=== PATIENT | female | born 1990 | race Caucasian/White ===

== ENCOUNTER 2016-12-31 09:58 | Emergency (ER) | payer OTHER ==
[2016-12-31 10:04] VITALS: BP 119/83
--- NOTE | 2016-12-31 10:08 | ER Document Report ---
ED Medical Screen (RME) - General Stated Complaint: SORE THROAT Time seen by provider: 10:05 Mode of Arrival: Ambulatory Information source: Patient Notes: 26-year-old female presents to ED for flulike symptoms with a sore throat today. She was diagnosed with the flu yesterday and her sore throat is worse today. Temperature got up to 100 for throat worse has been throwing up. Took Tylenol 8:30 and ibuprofen last at 3 AM. I have greeted and performed a rapid initial assessment of this patient. A comprehensive ED assessment and evaluation of the patient, analysis of test results and completion of medical decision making process will be conducted by an additional ED providers. TRAVEL OUTSIDE OF THE [place] IN LAST 30 DAYS: No - Related Data Allergies/Adverse Reactions: No Known Allergies Allergy (Unverified 10/23/15 17:47) Past Medical History Pulmonary Medical History: Reports: Hx Asthma Renal/ Medical History: Reports: Hx Kidney Stones Past Surgical History: Reports: Hx Appendectomy - Immunizations Hx Diphtheria, Pertussis, Tetanus Vaccination: Yes Physical Exam - Vital signs Vitals: Temp Pulse Resp BP Pulse Ox 99.6 F 126 H 20 119/83 97 12/31/16 10:03 12/31/16 10:03 12/31/16 10:03 12/31/16 10:03 12/31/16 10:03 Course - Vital Signs Vital signs: Temp Pulse Resp BP Pulse Ox 99.6 F 126 H 20 119/83 97 12/31/16 10:03 12/31/16 10:03 12/31/16 10:03 12/31/16 10:03 12/31/16 10:03
--- NOTE | 2016-12-31 10:47 | ER Document Report ---
ED ENT - General Chief Complaint: Sore Throat Stated Complaint: SORE THROAT Time seen by provider: 10:39 Mode of Arrival: Ambulatory Information source: Patient TRAVEL OUTSIDE OF THE [place] IN LAST 30 DAYS: No - HPI Patient complains to provider of: Throat problem Onset: Yesterday - pt with sore throat for the past 1-2 days. Child was diagnosed with flu yesterday. - Related Data Allergies/Adverse Reactions: No Known Allergies Allergy (Unverified 10/23/15 17:47) Past Medical History - General Information source: Patient - Social History Smoking Status: Never Smoker Chew tobacco use (# tins/day): No Frequency of alcohol use: None Drug Abuse: None Family History: Reviewed & Not Pertinent Patient has suicidal ideation: No Patient has homicidal ideation: No Pulmonary Medical History: Reports: Hx Asthma Renal/ Medical History: Reports: Hx Kidney Stones. Denies: Hx Peritoneal Dialysis Past Surgical History: Reports: Hx Appendectomy - Immunizations Hx Diphtheria, Pertussis, Tetanus Vaccination: Yes Review of Systems - Review of Systems Constitutional: See HPI, Fever EENT: See HPI, Throat pain Cardiovascular: No symptoms reported Respiratory: No symptoms reported Gastrointestinal: No symptoms reported -: Yes All other systems reviewed and negative Physical Exam - Vital signs Vitals: Temp Pulse Resp BP Pulse Ox 99.6 F 126 H 20 119/83 97 12/31/16 10:12/31/16 10:03 12/31/16 10:03 12/31/16 10:03 12/31/16 10:03 - General General appearance: Appears well In distress: Mild - HEENT Ears: Normal Pharynx: Erythema. No: Exudate Neck: Anterior cervical chain - Respiratory Respiratory status: No respiratory distress Breath sounds: Normal - Cardiovascular Rhythm: Regular, Tachycardia Heart sounds: Normal auscultation - Abdominal Inspection: Normal Tenderness: Nontender Course - Vital Signs Vital signs: Temp Pulse Resp BP Pulse Ox 99.6 F 126 H 20 119/83 97 12/31/16 10:03 12/31/16 10:03 12/31/16 10:03 12/31/16 10:03 12/31/16 10:03 Discharge - Discharge Clinical Impression: Pharyngitis Qualifiers: Pharyngitis/tonsillitis etiology: unspecified etiology Qualified Code(s): J02.9 - Acute pharyngitis, unspecified Condition: Stable Disposition: HOME, SELF-CARE Instructions: Sore Throat ([facility]), Penicillin V K ([facility]) Additional Instructions: rest, salt water gargle 3x/day, take meds as prescribed, return if worse Prescriptions: Amoxicillin Trihydrate [Amoxil 500 mg Capsule] 500 mg PO TID #30 capsule Referrals: RUTH FRANCO MD [ACTIVE STAFF] - Follow up as needed
== END 2016-12-31 10:58 | disposition home or self-care (01) ==
LOC: ER 09:58
DX: J02.9 Acute pharyngitis, unspecified (principal); R50.9 Fever, unspecified; R00.0 Tachycardia, unspecified; J45.909 Unspecified asthma, uncomplicated; Z20.828 Contact with and (suspected) exposure to other viral communicable diseases
CPT/HCPCS: 87880; 99283

== ENCOUNTER 2017-03-30 23:52 | Emergency (ER) | payer OTHER ==
[2017-03-31] MEDS ORDERED: ADENOSINE INJ/PF 6 MG/2 ML SDV IV ONE ×2 (00:29→00:32)
[2017-03-31] MEDS ORDERED: NORMAL SALINE 1000 ML 1,000 ML IV ONE (00:38)
[2017-03-31] MEDS ORDERED: LORAZEPAM INJ 2 MG/1 ML VIAL IV ONE (00:38)
[2017-03-31 00:41] LABS: ABSOLUTE EOSINOPHILS # (AUTO) 0.1 10^3/uL (0.0-0.6); ABSOLUTE LYMPHOCYTES (AUTO) 3.9 10^3/uL (0.5-4.7); ABSOLUTE MONOCYTES (AUTO) 0.9 10^3/uL (0.1-1.4); ABSOLUTE NEUT (AUTO) 6.7 10^3/uL (1.7-8.2); BASOPHILS % (AUTO) 0.4 % (0-2); EOSINOPHILS % (AUTO) 0.8 % (0-6); HEMATOCRIT 41.3 % (36.0-47.0); HEMOGLOBIN 13.8 g/dL (12.0-15.5); HGB HCT DIFFERENCE 0.1; LYMPHOCYTES % (AUTO) 33.3 % (13-45); MEAN CORPUSCULAR HEMOGLOBIN 30.5 pg (27.0-33.4); MEAN CORPUSCULAR HGB CONC 33.4 g/dL (32.0-36.0); MEAN CORPUSCULAR VOLUME 91 fl (80-97); MONOCYTES % (AUTO) 7.8 % (3-13); RED BLOOD COUNT 4.52 10^6/uL (3.72-5.28); RED CELL DISTRIBUTION WIDTH 13.6 % (11.5-14.0); SEGMENTED NEUTROPHILS % (AUTO) 57.7 % (42-78); WHITE BLOOD COUNT 11.6 10^3/uL (4.0-10.5)
[2017-03-31] MEDS ORDERED: LORAZEPAM INJ 2 MG/1 ML VIAL ONE (00:41)
--- NOTE | 2017-03-31 00:41 | ER Document Report ---
ED Cardiac <GEOFFREY MUNOZIAN - Last Filed: 03/31/17 00:49> - General TRAVEL OUTSIDE OF THE [place] IN LAST 30 DAYS: No <SAE BOWMAN - Last Filed: 03/31/17 03:25> - General Chief Complaint: Chest Pain Stated Complaint: CHEST PAIN WITH INCREASED HEART RATE Time Seen by Provider: 03/31/17 00:25 Notes: Patient is a 26-year-old female who comes emergency department for chief complaint of sensation of rapid heart rate, she also states that she was feeling short of breath earlier before arrival, she states that after going to a ball game they were driving home and she developed symptoms. She denies having chest pain, but does feel her heart pounding. patient states that she had an elevated heart rate at baseline and has been evaluated for this in the past, however she takes no medications, has never had a CT treatment or cardioversion. She is currently on her menstrual cycle. She admits to caffeine daily but denies smoking or any other medical history. (SAE BOWMAN) - Related Data Allergies/Adverse Reactions: No Known Allergies Allergy (Unverified 10/23/15 17:47) Past Medical History - General Information source: Patient - Social History Smoking Status: Never Smoker Chew tobacco use (# tins/day): No Frequency of alcohol use: None Drug Abuse: None Lives with: Family Family History: Reviewed & Not Pertinent Patient has suicidal ideation: No Patient has homicidal ideation: No Pulmonary Medical History: Reports: Hx Asthma Renal/ Medical History: Reports: Hx Kidney Stones - medular spnge kidney. Denies: Hx Peritoneal Dialysis Past Surgical History: Reports: Hx Appendectomy - Immunizations Hx Diphtheria, Pertussis, Tetanus Vaccination: Yes <SAE BOWMAN - Last Filed: 03/31/17 03:25> Review of Systems - Review of Systems Constitutional: No symptoms reported EENT: No symptoms reported Cardiovascular: See HPI Respiratory: See HPI Gastrointestinal: No symptoms reported Genitourinary: No symptoms reported Female Genitourinary: No symptoms reported Musculoskeletal: No symptoms reported Skin: No symptoms reported Hematologic/Lymphatic: No symptoms reported Neurological/Psychological: No symptoms reported <SAE BOWMAN - Last Filed: 03/31/17 03:25> Physical Exam - Vital signs Interpretation: Normal - General General appearance: Alert, Anxious In distress: None - HEENT Head: Normocephalic, Atraumatic Eyes: Normal Conjunctiva: Normal Extraocular movements intact: Yes Eyelashes: Normal Pupils: PERRL Nasal: Normal Mouth/Lips: Normal Mucous membranes: Normal Pharynx: Normal Neck: Normal - Respiratory Respiratory status: No respiratory distress Chest status: Nontender Breath sounds: Normal Chest palpation: Normal - Cardiovascular Rhythm: Regular, Tachycardia - marked tachycardia Heart sounds: Normal auscultation, S1 appreciated, S2 appreciated Murmur: No - Abdominal Inspection: Normal Distension: No distension Bowel sounds: Normal Tenderness: Nontender. No: Tender, Guarding Organomegaly: No organomegaly - Back Back: Normal, Nontender. No: Tender - Extremities General upper extremity: Normal inspection, Nontender, Normal color, Normal ROM , Normal temperature General lower extremity: Normal inspection, Nontender, Normal color, Normal ROM , Normal temperature, Normal weight bearing. No: Vanna's sign - Neurological Neuro grossly intact: Yes Cognition: Normal Orientation: AAOx4 Rachel Coma Scale Eye Opening: Spontaneous [place] Coma Scale Verbal: Oriented Rachel Coma Scale Motor: Obeys Commands Rachel Coma Scale Total: 15 Speech: Normal Cranial nerves: Normal Cerebellar coordination: Normal Motor strength normal: LUE, RUE, LLE, RLE Sensory: Normal - Psychological Associated symptoms: Anxious - Skin Skin Temperature: Warm Skin Moisture: Dry Skin Color: Normal <SAE BOWMAN - Last Filed: 03/31/17 03:25> - Vital signs Vitals: Temp Pulse Resp BP Pulse Ox 98.1 F 165 H 18 143/100 H 100 03/30/17 23:59 03/30/17 23:59 03/30/17 23:59 03/30/17 23:59 03/30/17 23:59 Course - Laboratory Result Diagrams: 03/31/17 00:30 03/31/17 00:30 <SILVIO MUNOZ - Last Filed: 03/31/17 00:49> - Laboratory Result Diagrams: 03/31/17 00:30 03/31/17 00:30 <SAE BOWMAN - Last Filed: 03/31/17 03:25> - Re-evaluation Re-evalutation: 03/31/17 00:40 On initial evaluation patient immediately hooked up to the monitor and noted to have a resting heart rate of about 175-185. Patient anxious but does not appear to be in distress. She denies chest pain. No hypotension. EKG performed , shows SVT at 160s although on average patient is significantly higher than this on the monitor. No comparison EKG. Beginning vagal maneuvers, grabbed Dr. Munoz and he was introduced to the patient at bedside, he was able to field hockey coach patient through a couple of additional vagal maneuvers and patient successfully was able to break out of the SVT into sinus rhythm after third vagal maneuver attempt. No adenosine required. Giving Ativan, IV fluids, workup pending. Patient states that she was admitted to the hospital because of persistent baseline tachycardia of about 120s on average, states that she had multiple tests performed including an echocardiogram but no one has found an abnormality to this point. 03/31/[address] Alejandro, Cardiology assistant front office manager. He recommends Atenolol 25 mg daily and gave his cell phone for patient to follow up with. Recommends Sunday followup after the holiday weekend is over. Patient states understanding and agreement. Dr. Munoz ordering potassium and magnesium to give to the patient to go as well. (SAE BOWMAN) - Vital Signs Vital signs: Temp Pulse Resp BP Pulse Ox 98.1 F 160 H 16 124/89 H 99 03/30/17 23:59 03/31/17 00:19 03/31/17 02:01 03/31/17 02:01 03/31/17 02:01 - Laboratory Laboratory results interpreted by me: 03/31/17 03/31/17 03/31/17 00:30 00:30 00:49 WBC 11.6 H Sodium 145.8 H Calcium 10.8 H Total Protein 8.5 H Albumin 5.1 H Urine Blood SMALL H - Transfer of Care Notes: 03/31/17 00:50 I was asked to see the patient because she was in SVT. Patient was in SVT. She does have a history of sinus tachycardia. She has had workups by cardiology including echocardiogram and EKGs. She has been admitted [facility] for workup. She has never actually been in prolonged SVT before. She felt her heart race fast before but it is always slow down quickly afterwards. She says her resting heart rate is actually typically around 120. Patient does drink a lot of caffeine. She says denies episode is been ongoing for several hours. Patient's first EKG does show SVT with a rate of approximately 164 bpm. This is a narrow complex tachycardia. QRS duration is within normal range. QTc interval is prolonged. No concerning ischemic changes. Patient underwent 3 vagal maneuvers. On the third vagal maneuvers she did convert. Her repeat EKG shows sinus tachycardia with a rate of 119 bpm. No ischemic changes. No evidence of WPW syndrome. QRS duration, QTc intervals are within normal range. Blood work is pending. Patient was kept on monitor and closely watched until lab results returned (SILVIO MUNOZ) Discharge <SILVIO MUNOZ - Last Filed: 03/31/17 00:49> <SAE BOWMAN - Last Filed: 03/31/17 03:25> - Discharge Clinical Impression: SVT (supraventricular tachycardia), Tachycardia Condition: Stable Disposition: HOME, SELF-CARE Additional Instructions: Tonight you had an episode of SVT, supraventricular tachycardia. Take the atenolol as prescribed, stay hydrated, please follow-up with equipment records supervisor on Sunday, see referral, the equipment records supervisor can also be reached at cell phone #[phone]. Return to the emergency department if you develop any concerning or worsening symptoms including rapid heart rate, shortness of breath, chest pain, or any other concerning symptoms. Prescriptions: Atenolol [Tenormin] 25 mg PO DAILY #30 tablet Referrals: DANO GU MD [ACTIVE STAFF] - 04/03/17
[2017-03-31 01:02] LABS: APPEARANCE,URINE CLEAR; BILIRUBIN,URINE NEGATIVE (NEGATIVE); GLUCOSE, URINE NEGATIVE (NEGATIVE); KETONES,URINE NEGATIVE (NEGATIVE); LEUKOCYTE ESTERASE,URINE NEGATIVE (NEGATIVE); NITRITE,URINE NEGATIVE (NEGATIVE); PROTEIN,URINE NEGATIVE (NEGATIVE); UROBILINOGEN,URINE NEGATIVE mg/dL (<2.0)
[2017-03-31 01:06] LABS: ALANINE AMINOTRANSFERASE 32 U/L (9-52); ALBUMIN 5.1 g/dL (3.5-5.0); ALKALINE PHOSPHATASE 63 U/L (38-126); ANION GAP 18 (5-19); ASPARTATE AMINO TRANSFERASE 24 U/L (14-36); BILIRUBIN,DIRECT 0.4 mg/dL (0.0-0.4); BILIRUBIN,TOTAL 0.4 mg/dL (0.2-1.3); BLOOD UREA NITROGEN 11 mg/dL (7-20); CALCIUM 10.8 mg/dL (8.4-10.2); CARBON DIOXIDE 23 mmol/L (22-30); CHLORIDE 105 mmol/L (98-107); CREATININE RESULT 0.73 mg/dL (0.52-1.25); GLUCOSE 104 mg/dL (75-110); MAGNESIUM 1.7 mg/dL (1.6-2.3); POTASSIUM 3.6 mmol/L (3.6-5.0); SODIUM 145.8 mmol/L (137-145); TOTAL PROTEIN 8.5 g/dL (6.3-8.2)
[2017-03-31] MEDS ORDERED: POTASSIUM CHLORIDE 10 MEQ TABLET.SA PO ONE (02:20)
[2017-03-31] MEDS ORDERED: MAGNESIUM SULFATE/D5W 100 ML IV SCH (02:30)
[2017-03-31] MEDS ORDERED: MAGNESIUM OXIDE 400 MG TABLET PO ONE (02:46)
[2017-03-31 04:22] VITALS: BP 136/86
--- NOTE | 2017-03-31 08:14 | EKG REPORT ---
SEVERITY:- ABNORMAL ECG - SINUS TACHYCARDIA INCOMPLETE RIGHT BUNDLE BRANCH BLOCK LA ABNORMALITY : Confirmed by: Yadiel Gould MD 31-Mar-2017 08:14:16
--- NOTE | 2017-03-31 08:16 | EKG REPORT ---
SEVERITY:- ABNORMAL ECG - SUPRAVENTRICULAR TACHYCARDIA PROLONGED QT INTERVAL ST-T WAVE CHANGES DUE TO TACHYCARDIA : Confirmed by: Yadiel Gould MD 31-Mar-2017 08:15:59
== END 2017-03-31 02:50 | disposition home or self-care (01) ==
LOC: ER 23:52
DX: I47.1 Supraventricular tachycardia (principal); R00.0 Tachycardia, unspecified; R07.9 Chest pain, unspecified
CPT/HCPCS: 93005; 99285; 96361; 96374; 36415; 83735; 84443; 84703; 85025; 80053; 81001; 93010; J2060; J7030

== ENCOUNTER 2017-05-31 11:15 | Emergency (ER) | payer OTHER ==
[2017-05-31] MEDS ORDERED: ATENOLOL 50 MG TABLET PO ONE (12:01)
[2017-05-31] MEDS ORDERED: NORMAL SALINE 1000 ML 1,000 ML IV PRN (12:01)
[2017-05-31 12:07] LABS: ABSOLUTE LYMPHOCYTES (AUTO) 2.2 10^3/uL (0.5-4.7); ABSOLUTE MONOCYTES (AUTO) 0.5 10^3/uL (0.1-1.4); ABSOLUTE NEUT (AUTO) 4.5 10^3/uL (1.7-8.2); BASOPHILS % (AUTO) 0.4 % (0-2); EOSINOPHILS % (AUTO) 0.7 % (0-6); HEMOGLOBIN 12.4 g/dL (12.0-15.5); HGB HCT DIFFERENCE 0.2; LYMPHOCYTES % (AUTO) 30.4 % (13-45); MEAN CORPUSCULAR HEMOGLOBIN 30.7 pg (27.0-33.4); MEAN CORPUSCULAR HGB CONC 33.5 g/dL (32.0-36.0); MEAN CORPUSCULAR VOLUME 92 fl (80-97); MONOCYTES % (AUTO) 6.6 % (3-13); RED BLOOD COUNT 4.04 10^6/uL (3.72-5.28); SEGMENTED NEUTROPHILS % (AUTO) 61.9 % (42-78); WHITE BLOOD COUNT 7.3 10^3/uL (4.0-10.5)
--- NOTE | 2017-05-31 12:11 | ER Document Report ---
ED Cardiac - General Chief Complaint: Chest Pain Stated Complaint: CHEST PAIN Time Seen by Provider: 05/31/17 11:54 Notes: The patient is a 26-year-old female, past medical history SVT, unexplained tachycardia (baseline HR 110-120's), presents with 1 hour of feeling her heart racing and mild chest pain. She was seen in the emergency room 2 months ago for SVT which resolved after vagal maneuvers. She was recommended to be started on atenolol 25 mg daily and she finished the course. Patient Service Representative is at [facility] and she has had a Holter monitor, echo and other workup, which they told her was normal. She no longer has atenolol. Patient denies leg swelling, estrogen use, hemoptysis, shortness of breath, fevers, cough, nausea, vomiting, urinary symptoms or back pain. TRAVEL OUTSIDE OF THE [place] IN LAST 30 DAYS: No - Related Data Allergies/Adverse Reactions: No Known Allergies Allergy (Verified 05/31/17 11:32) Past Medical History - General Information source: Patient - Social History Smoking Status: Never Smoker Family History: Reviewed & Not Pertinent Patient has suicidal ideation: No Patient has homicidal ideation: No - Past Medical History Cardiac Medical History: Reports: Other - Tachycardia Pulmonary Medical History: Reports: Hx Asthma Renal/ Medical History: Reports: Hx Kidney Stones - medular spnge kidney. Denies: Hx Peritoneal Dialysis Past Surgical History: Reports: Hx Appendectomy - Immunizations Hx Diphtheria, Pertussis, Tetanus Vaccination: Yes Review of Systems - Review of Systems Notes: REVIEW OF SYSTEMS: CONSTITUTIONAL: -fevers, -chills EENT: -eye pain, -difficulty swallowing, -nasal congestion CARDIOVASCULAR: +chest pain, +palpitations, -syncope. RESPIRATORY: -cough, -SOB GASTROINTESTINAL: -abdominal pain, -nausea, -vomiting, -diarrhea GENITOURINARY: -dysuria, -hematuria MUSCULOSKELETAL: -back pain, -neck pain SKIN: -rash or skin lesions. HEMATOLOGIC: -easy bruising or bleeding. LYMPHATIC: -swollen, enlarged glands. NEUROLOGICAL: -altered mental status or loss of consciousness, -headache, - neurologic symptoms PSYCHIATRIC: -anxiety, -depression. ALL OTHER SYSTEMS REVIEWED AND NEGATIVE. Physical Exam - Notes Notes: PHYSICAL EXAMINATION: GENERAL: Well-appearing, well-nourished and in no acute distress. HEAD: Atraumatic, normocephalic. EYES: Pupils equal round and reactive to light, extraocular movements intact, sclera anicteric, conjunctiva are normal. ENT: nares patent, oropharynx clear without exudates. Moist mucous membranes. NECK: Normal range of motion, supple without lymphadenopathy LUNGS: Breath sounds clear to auscultation bilaterally and equal. No wheezes rales or rhonchi. HEART: Regular rhythm without murmurs. Tachycardia ABDOMEN: Soft, nontender, normoactive bowel sounds. No guarding, no rebound. No masses appreciated. EXTREMITIES: Normal range of motion, no pitting or edema. No cyanosis. NEUROLOGICAL: Cranial nerves grossly intact. Normal speech, normal gait. Normal sensory and motor exams. PSYCH: Normal mood, normal affect. SKIN: Warm, Dry, normal turgor, no rashes or lesions noted. Course - Re-evaluation Re-evalutation: Patient seen immediately on arrival after EKG. No P waves were detected on initial EKG and SVT was suspected. Patient converted to sinus tachycardia after vagal maneuvers. She was hemodynamically stable the entire time. Labs were unremarkable. D-dimer sent due to low risk for PE, but unable to PERC out. It was also negative. Chest x-ray did not show any acute abnormalities. Patient says that she has had multiple workups for her tachycardia by the training administrator at [facility]. Looking through her last visit, she is supposed to be on atenolol 25 mg daily and supposed to follow-up with Dr. Gu as an outpatient. She is requesting another referral for Dr. Gu. Patient feels much better and her HR is 97 after 2L IVF. Instructed her to drink plenty of fluids, take her atenolol and follow-up with cardiology. Given strict return precautions and she understands. - Laboratory Result Diagrams: 05/31/17 11:55 05/31/17 11:55 Laboratory results interpreted by me: 05/31/17 11:55 Sodium 145.1 H Chloride 108 H - Diagnostic Test Radiology reviewed: Image reviewed, Reports reviewed Radiology results interpreted by me: CXR: NAD - EKG Interpretation by Me EKG shows normal: [place], Intervals, QRS Complexes, ST-T Waves Rate: Tachycardia Rhythm: SVT Additional EKG results interpreted by me: 05/31/17 11:30: tachycardia, no P-waves notes, HR 151 05/31/17 12:06: Sinus Tachycardia, HR 106 Discharge - Discharge Clinical Impression: Tachycardia Condition: Stable Disposition: HOME, SELF-CARE Additional Instructions: Take the atenolol as prescribed, stay hydrated, please follow-up with training administrator HERON, see referral. The training administrator can also be reached at cell phone #[phone]. Return to the emergency department if you develop any concerning or worsening symptoms including rapid heart rate, shortness of breath, chest pain, or any other concerning symptoms. Palpitations (Irregular/Rapid Heartrate) Irregular or rapid heartbeat is called "palpitation." To diagnose the cause of palpitation, we have to "catch it in the act" with an EKG. Sinus Tachycardia: This is a rapid (but NORMAL) rhythm that can be due to fever, pain, anxiety, lack of sleep, over-exertion, or drugs. Cold medications, caffeine, and diet pills are particularly likely to cause tachycardia. Usually , all that's required is rest, reassurance, and avoiding caffeine, alcohol, nicotine, and unnecessary medicines. Paroxysmal Atrial Tachycardia (PAT): This abnormally rapid heartbeat is caused by a "short circuit" in the electrical system of the heart. It is not dangerous, unless other heart disease is present. These attacks of PAT may occur occasionally for years. Medication is available for treatment. Paroxysmal Atrial Fibrillation or Atrial Flutter: This is irregular electrical activity in the upper heart chamber. These abnormal rhythms often occur with valve disease or in hearts damaged by hardening of the arteries. These rhythms usually require further testing, for example a cardiac echo. Premature Beats: Extra beats occur more commonly after caffeine, nicotine , alcohol, cold pills, diet pills. Emotional stress or fatigue also provoke them. Extra beats are only dangerous when heart disease is present. They usually need no treatment. If they're frequent, or if evidence of heart disease develops, medication can be given to suppress them. If we were unable to "catch" the palpitations on EKG, you should try to get an EKG immediately if the symptoms begin again. Contact the physician at once if you develop persistent lightheadedness, shortness of breath, chest pain , or swelling of the ankles. Prescriptions: Atenolol [Tenormin] 25 mg PO DAILY #30 tablet Referrals: DANO GU MD [ACTIVE STAFF] - Follow up as needed
[2017-05-31 12:52] LABS: ALANINE AMINOTRANSFERASE 27 U/L (9-52); ALBUMIN 4.8 g/dL (3.5-5.0); ALKALINE PHOSPHATASE 57 U/L (38-126); ANION GAP 14 (5-19); ASPARTATE AMINO TRANSFERASE 25 U/L (14-36); BILIRUBIN,DIRECT 0.3 mg/dL (0.0-0.4); BILIRUBIN,TOTAL 0.4 mg/dL (0.2-1.3); BLOOD UREA NITROGEN 9 mg/dL (7-20); CALCIUM 9.9 mg/dL (8.4-10.2); CARBON DIOXIDE 23 mmol/L (22-30); CHLORIDE 108 mmol/L (98-107); CREATININE RESULT 0.53 mg/dL (0.52-1.25); GLUCOSE 104 mg/dL (75-110); POTASSIUM 3.8 mmol/L (3.6-5.0); SODIUM 145.1 mmol/L (137-145)
--- NOTE | 2017-05-31 13:48 | RADIOLOGY REPORT (SQ) ---
EXAM DESCRIPTION: CHEST PA/LAT COMPLETED DATE/TIME: 05/31/2017 1:26 pm REASON FOR STUDY: chest pain COMPARISON: None. EXAM PARAMETERS: NUMBER OF VIEWS: two views TECHNIQUE: Digital Frontal and Lateral radiographic views of the chest acquired. RADIATION DOSE: NA LIMITATIONS: none FINDINGS: LUNGS AND PLEURA: No opacities, masses or pneumothorax. No pleural effusion. MEDIASTINUM AND HILAR STRUCTURES: No masses or contour abnormalities. HEART AND VASCULAR STRUCTURES: Heart normal size. No evidence for failure. BONES: No acute findings. HARDWARE: None in the chest. OTHER: No other significant finding. IMPRESSION: NO SIGNIFICANT RADIOGRAPHIC FINDING IN THE CHEST. TECHNICAL DOCUMENTATION: JOB ID: [id number] [employer]- All Rights Reserved
[2017-05-31 14:10] VITALS: BP 118/91
--- NOTE | 2017-05-31 17:14 | EKG REPORT ---
SEVERITY:- OTHERWISE NORMAL ECG - SINUS TACHYCARDIA : Confirmed by: Mary Velázquez MD 31-May-2017 17:13:46
--- NOTE | 2017-05-31 17:15 | EKG REPORT ---
SEVERITY:- OTHERWISE NORMAL ECG - SINUS TACHYCARDIA VERSUS SVT.CORELATE CLINICALLY : Confirmed by: Mary Velázquez MD 31-May-2017 17:14:42
== END 2017-05-31 14:10 | disposition home or self-care (01) ==
LOC: ER 11:15
DX: R00.0 Tachycardia, unspecified (principal); R07.9 Chest pain, unspecified; I47.1 Supraventricular tachycardia; Z79.899 Other long term (current) drug therapy
CPT/HCPCS: 93005; 99285; 96360; 36415; 84703; 85025; 80053; 84484; 85379; 71020; 93010; J7030

== ENCOUNTER 2017-09-03 17:41 | Emergency (ER) | payer OTHER ==
[2017-09-03] MEDS ORDERED: NAPROXEN 250 MG TABLET PO ONE (18:35)
--- NOTE | 2017-09-03 18:40 | ER Document Report ---
HPI - HPI Patient complains to provider of: left hand pain Pain Level: 3 Context: Patient is a 27-year-old female that comes emergency department for chief complaint of left hand pain. She states that 6 days ago she had a ablation procedure performed Ritchie, she states there was an IV placed in her hand which blew and medications were pushed through it causing some swelling to the hand. She states that her hand still hurts, she states she tried to go to work but the typing was too painful. She states her left arm and shoulder are starting become tired because of her holding her hand awkwardly to type. She denies any significant swelling, redness, fever. She denies chest pain, shortness of breath, she states she is doing great after the ablation and she is very excited about this. She is not on any medications. - DERM Skin Color: Normal Past Medical History - General Information source: Patient - Social History Smoking Status: Never Smoker Frequency of alcohol use: None Drug Abuse: None Lives with: Family Family History: Reviewed & Not Pertinent Patient has suicidal ideation: No Patient has homicidal ideation: No Pulmonary Medical History: Reports: Hx Asthma Renal/ Medical History: Reports: Hx Kidney Stones - medular spnge kidney. Denies: Hx Peritoneal Dialysis Past Surgical History: Reports: Hx Appendectomy - Immunizations Hx Diphtheria, Pertussis, Tetanus Vaccination: Yes Vertical Provider Document - CONSTITUTIONAL General Appearance: WD/WN, No Apparent Distress - INFECTION CONTROL TRAVEL OUTSIDE OF THE [place] IN LAST 30 DAYS: No - HEENT HEENT: Atraumatic, Normocephalic - NECK Neck: Normal Inspection - RESPIRATORY Respiratory: Breath Sounds Normal, No Respiratory Distress O2 Sat by Pulse Oximetry: 97 - CARDIOVASCULAR Cardiovascular: Regular Rate, Regular Rhythm - GI/ABDOMEN Gastrointestinal: Abdomen Soft, Abdomen Non-Tender - MUSCULOSKELETAL/EXTREMETIES Musculoskeletal/Extremeties: Tender - There is tenderness over the left hand mainly over the thenar area and in between at the webbing of the first and second digit. There is no induration, fluctuance, there is a small amount of bruising over the dorsal aspect. There is no erythema, abnormal heat, there is no streaking redness, range of motion of the hand intact although painful at the first digit and thumb. No swelling of the hand, forearm, elbow. Normal examination otherwise. - NEURO Level of Consciousness: Awake, Alert, Appropriate Course - Re-evaluation Re-evalutation: No concerning swelling, erythema, heat, or other abnormality noted to the area. Area is tender but appears to be consistent with phlebitis and infiltration. No evidence of blood clot or infection, no neurovascular deficits. Discussed this with patient. Recommended anti-inflammatory, ice, provided with work release so she can rest her hand, provided with brace to use on the hand/wrist for support/comfort, discussed follow-up and return precautions in detail. Patient states understanding and agreement. - Vital Signs Vital signs: Temp Pulse Resp BP Pulse Ox 98.4 F 101 H 18 137/96 H 97 09/03/17 17:57 09/03/17 17:57 09/03/17 17:57 09/03/17 17:57 09/03/17 17:57 Procedures - Immobilization Left wrist Pre-Proc Neuro Vasc Exam: Normal Immobilizer type: Cock-up Performed by: PCT Post-Proc Neuro Vasc Exam: Normal Alignment checked and good: Yes Discharge - Discharge Clinical Impression: Left hand pain Condition: Stable Disposition: HOME, SELF-CARE Additional Instructions: Area is consistent with soft tissue injury and inflammation of the vein ( phlebitis). Please take the anti-inflammatory as prescribed, use the brace if needed, rest your hand, apply ice to the area for 10-15 minutes 3-4 times a day. Continue until symptoms resolve. Follow-up with your primary care provider. Return to the emergency department for any concerning symptoms including swelling of the area, redness, spreading redness, fever, or any other concerning symptoms. Prescriptions: Naproxen [Naprosyn 375 Mg Tablet] 375 mg PO BID #20 tablet Forms: Return to Work Referrals: HAYDE LEDESMA DO [Primary Care Provider] - Follow up as needed
[2017-09-03 19:32] VITALS: BP 128/87
== END 2017-09-03 19:30 | disposition home or self-care (01) ==
LOC: ER 17:41
DX: S60.222A Contusion of left hand, initial encounter (principal); M79.642 Pain in left hand; X58.XXXA Exposure to other specified factors, initial encounter; Z98.890 Other specified postprocedural states; J45.909 Unspecified asthma, uncomplicated
CPT/HCPCS: 99283; L3908

== ENCOUNTER 2017-12-03 13:15 | Emergency (ER) | payer OTHER ==
[2017-12-03] MEDS ORDERED: KETOROLAC TROMETHAMINE INJ/PF 30 MG/1 ML SDV IV ONE (14:17)
[2017-12-03] MEDS ORDERED: PROCHLORPERAZINE EDISYLATE INJ 10 MG/2 ML VIAL IV ONE (14:17)
[2017-12-03] MEDS ORDERED: DIPHENHYDRAMINE HCL 50 MG/ML VIAL IV ONE (14:17)
[2017-12-03] MEDS ORDERED: NORMAL SALINE 1000 ML 1,000 ML IV ONE (14:18)
--- NOTE | 2017-12-03 15:45 | ER Document Report ---
ED Headache - General Chief Complaint: Headache Stated Complaint: VOMITING Time Seen by Provider: 12/03/17 14:08 Mode of Arrival: Ambulatory Information source: Patient Notes: 27-year-old female presents to ED for complaint of headache times several days. She states she cannot get the headache to go away and now she started vomiting. She states she has taken allergy medicine Tylenol and ibuprofen but has not taken any medicine today. States she has a history of migraines but has not been to any doctor recently. TRAVEL OUTSIDE OF THE [place] IN LAST 30 DAYS: No - HPI Patient complains to provider of: "Migraine" Patient reports: Frequent migraines, Hx chronic headaches Onset: Other - Several days Onset was: Gradual Timing: Still present Quality of pain: Achy, Throbbing Severity: Moderate Pain Level: 4 Associated symptoms: Nausea/vomiting, Photophobia Exacerbated by: Light, Noise, Movement Similar symptoms previously: Yes Recently seen / treated by doctor: No - Related Data Allergies/Adverse Reactions: No Known Allergies Allergy (Verified 12/03/17 15:07) Past Medical History - Social History Smoking Status: Never Smoker Cigarette use (# per day): No Chew tobacco use (# tins/day): No Smoking Education Provided: No Frequency of alcohol use: None Drug Abuse: None Occupation: Instruction Lives with: Family Family History: Arthritis. denies: CAD, COPD, CVA, DM, Hyperlipidemia, Hypertension, Malignancy, Thyroid Disfunction Patient has suicidal ideation: No Patient has homicidal ideation: No - Past Medical History Cardiac Medical History: Reports: Other - svt Pulmonary Medical History: Reports: Hx Asthma EENT Medical History: Reports: None Neurological Medical History: Reports: Hx Migraine Endocrine Medical History: Reports: None Renal/ Medical History: Reports: Hx Kidney Stones - Medullary sponge kidney Malignancy Medical History: Reports: None Musculoskeltal Medical History: Reports None Skin Medical History: Reports None Psychiatric Medical History: Reports: None Traumatic Medical History: Reports: None Infectious Medical History: Reports: None Past Surgical History: Reports: Hx Appendectomy, Hx Inguinal Hernia - Immunizations Hx Diphtheria, Pertussis, Tetanus Vaccination: Yes Review of Systems - Review of Systems Constitutional: No symptoms reported EENT: Nose discharge, Sinus pressure, Sinus discharge Cardiovascular: No symptoms reported Respiratory: No symptoms reported Gastrointestinal: Nausea, Vomiting Genitourinary: No symptoms reported Female Genitourinary: No symptoms reported Musculoskeletal: No symptoms reported Skin: No symptoms reported Hematologic/Lymphatic: No symptoms reported Neurological/Psychological: Headaches -: Yes All other systems reviewed and negative Physical Exam - Vital signs Vitals: Temp Pulse Resp BP Pulse Ox 98.7 F 108 H 20 124/84 100 12/03/17 13:24 12/03/17 13:24 12/03/17 13:24 12/03/17 13:24 12/03/17 13:24 Interpretation: Normal - Notes Notes: Patient alert and oriented speaks in full sentences. Patient is able to walk with the even steady gait with pupils equal and reactive to light. - General General appearance: Appears well, Alert - HEENT Head: Normocephalic, Atraumatic Eyes: Normal Pupils: PERRL Visual wright normal: Yes Ears: Normal External canal: Normal Tympanic membrane: Normal Sinus: Normal Nasal: Swelling, Clear rhinorrhea Mouth/Lips: Normal Mucous membranes: Normal Pharynx: Post nasal drainage Neck: Normal - Respiratory Respiratory status: No respiratory distress Chest status: Nontender Breath sounds: Normal Chest palpation: Normal - Cardiovascular Rhythm: Regular Heart sounds: Normal auscultation Murmur: No - Abdominal Inspection: Normal Distension: No distension Bowel sounds: Normal Tenderness: Nontender Organomegaly: No organomegaly - Back Back: Normal, Nontender - Extremities General upper extremity: Normal inspection, Nontender, Normal color, Normal ROM , Normal temperature General lower extremity: Normal inspection, Nontender, Normal color, Normal ROM , Normal temperature, Normal weight bearing. No: Vanna's sign - Neurological Neuro grossly intact: Yes Cognition: Normal Orientation: AAOx4 [place] Coma Scale Eye Opening: Spontaneous [place] Coma Scale Verbal: Oriented [place] Coma Scale Motor: Obeys Commands [place] Coma Scale Total: 15 Speech: Normal Cranial nerves: Normal Cerebellar coordination: Normal Motor strength normal: LUE, RUE, LLE, RLE Additional motor exam normals: Equal financial coordinator Babinski reflex: Normal (flexor plantar) Sensory: Normal Biceps - Reflex grade: 2 = Normal Triceps - Reflex grade: 2 = Normal Brachioradialis - Reflex grade: 2 = Normal Knee - Reflex grade: 2 = Normal - Psychological Associated symptoms: Normal affect, Normal mood - Skin Skin Temperature: Warm Skin Moisture: Dry Skin Color: Normal Course - Re-evaluation Re-evalutation: 12/03/17 15:41 Patient was treated with Compazine IV, Toradol IV, Benadryl IV with a liter of normal saline for her headache with nausea and vomiting. Patient states all of her headache was relieved she is feeling much better. She states she is no longer nauseated. She states she no longer has any pressure. And she states she is ready to go home. Will discharge home with prescription for ibuprofen and Compazine with instructions to follow-up with her primary doctor and get treatment regime started for her migraine headaches. - Vital Signs Vital signs: Temp Pulse Resp BP Pulse Ox 98.7 F 108 H 20 124/84 100 12/03/17 13:24 12/03/17 13:24 12/03/17 13:24 12/03/17 13:24 12/03/17 13:24 Discharge - Discharge Clinical Impression: Headache Qualifiers: Headache type: unspecified Headache chronicity pattern: unspecified pattern Intractability: not intractable Qualified Code(s): R51 - Headache Condition: Stable Disposition: HOME, SELF-CARE Instructions: Family Physicians / Practices Additional Instructions: HEADACHE: The physician does not feel that the headache you are experiencing has a serious underlying cause. Most headaches are due to emotional stress, with resultant muscle tension (tension headache). Occasionally, headaches are secondary to changes in the blood vessels of the scalp (vascular headache and migraine headache). Sometimes, a headache is the first symptom of another developing illness, such as a viral infection. You have no evidence of stroke, bleeding, meningitis, or other serious cause of your headache. The treatment of headaches varies with the severity and cause of the pain. Not all headaches need pain shots. In fact, there is evidence that using narcotics for headaches may make them worse in the long run. The physician will determine the therapy that's in your best interest. If you develop a fever, if the headache is different from any you've previously experienced, or if the headache progressively worsens, then call your physician at once or go to the emergency room. USE OF DIPHENHYDRAMINE: Diphenhydramine (Benadryl) is an antihistamine and has been recommended to help treat your headache and to prevent side effects of other medications used to treat headaches. The medication can be repeated four times daily. Age Elixir (12.5 mg/tsp) 25 mg pill adult 1-2 tabs Antihistamines may cause drowsiness, especially with the first dose. Do not operate machinery or drive while under the effects of the medication. Do not combine the medication with alcohol, or with any other medication without talking to your doctor. ANTINAUSEA MEDICATION: You have been given a medication to suppress nausea and vomiting. This type of medication can be given as a shot, pill, or suppository. It will usually last for many hours. Pills and shots usually last six to eight hours, suppositories last about 12 hours. For the typical illness, only one or two doses of the medication may be necessary. Mild lightheadedness may occur. This type of medicine can cause drowsiness. Do not drive or operate dangerous machinery while under its influence. Do not mix with alcohol. See your doctor at once if you have muscle spasms or tightness, or uncontrollable motions (particularly of the neck, mouth, or jaw). Persistent vomiting or severe lightheadedness should also be evaluated by the physician. INTRAVENOUS COMPAZINE FOR HEADACHE: You have received therapy for headaches, using intravenous Compazine. This treatment is dramatically successful in relieving the headache in about 50 percent of cases. When it works, it provides a rapid method of eliminating the headache without resorting to narcotics (and the problems associated with them). Most patients still feel fully alert after the Compazine, but others may be slightly drowsy. It's best not to drive or work with machinery for six to eight hours. Do not take alcohol or other medication unless you discuss it with the doctor. If you develop tightness and spasms in your muscles, especially the neck and tongue, you should return. This is a side effect which can be treated. TORADOL INJECTION: You have been given an injection of ketorolac tromethamine (Toradol). This is an excellent, safe drug for pain control. It also has potent antiinflammatory action. You should have significant pain relief within about one hour. Toradol is not addicting and is non-sedating. It does not interfere with driving or work. Call or return if you develop itching, hives, shortness of breath, or rash. FOLLOW-UP CARE: If you have been referred to a physician for follow-up care, call the physician s office for an appointment as you were instructed or within the next two days. If you experience worsening or a significant change in your symptoms, notify the physician immediately or return to the Emergency Department at any time for re-evaluation. Prescriptions: Ibuprofen 600 mg PO Q8HP PRN #20 tablet PRN Reason: Prochlorperazine Maleate [Compazine 10 mg Tablet] 10 mg PO ASDIR PRN #10 tablet PRN Reason: Forms: Return to Work
[2017-12-03 15:53] VITALS: BP 128/78
== END 2017-12-03 15:54 | disposition home or self-care (01) ==
LOC: ER 13:15
DX: R51 Headache (principal); R11.2 Nausea with vomiting, unspecified; H53.149 Visual discomfort, unspecified; J45.909 Unspecified asthma, uncomplicated; J34.89 Other specified disorders of nose and nasal sinuses; R09.82 Postnasal drip
CPT/HCPCS: 99283; 96361; 96374; 96375; J1200; J1885; J0780; J7030

== ENCOUNTER 2019-02-09 07:32 | Emergency (ER) | payer OTHER ==
[2019-02-09] MEDS ORDERED: NORMAL SALINE 1000 ML 1,000 ML IV ONE (08:05)
[2019-02-09] MEDS ORDERED: ONDANSETRON HCL INJ/PF 4 MG/2 ML SDV IV ONE (08:06)
[2019-02-09] MEDS ORDERED: MORPHINE SULFATE 10 MG/ML INJ IV ONE (08:06)
--- NOTE | 2019-02-09 08:26 | ER Document Report ---
ED General - General Chief Complaint: Flank Pain Stated Complaint: FLANK PAIN Time Seen by Provider: 02/09/19 08:02 Primary Care Provider: ELENA SERRA MD [COMMUNITY BASED STAFF] - Follow up in 3-5 days (or your primary care. ) Notes: Patient is a 28-year-old female with history of kidney stones that presents to the emergency department for chief complaint of right flank pain and hematuria. Patient states that her pain started late last night, into this morning, she describes as severe and spasming type pain, that it will come on in and relax, when it does come on she rates it as a 10 out of 10, patient is tearful at this time, she has associated nausea but no vomiting. Reports prior history of kidney stones, this 1 seems to be worse than prior. She reports having medullary sponge kidneys, so commonly does get kidney stones. She is also noticed hematuria this morning. Denies any any fevers, chills, night sweats, chest pain, dysuria, diarrhea or constipation. Past Medical History: Kidney stones, medullary sponge kidneys, asthma Past Surgical History: Cardiac ablation Social History: Admits to smoking cigarettes, denies alcohol or drug use. Family History: Reviewed and noncontributory for presenting illness Allergies: Reviewed, see documented allergy list. REVIEW OF SYSTEMS: Other than noted above, the 12 point review of systems was reviewed with the patient and were negative, all pertinent findings are included in the HPI. PHYSICAL EXAMINATION: Vital signs reviewed, nursing noted reviewed. GENERAL: Patient is tearful on exam, appears rather uncomfortable HEAD: Atraumatic, normocephalic. EYES: Eyes appear normal, extraocular movements intact, sclera anicteric, conjunctiva are normal. ENT: nares patent, oropharynx clear without exudates. Moist mucous membranes. NECK: Normal range of motion, supple without lymphadenopathy LUNGS: Breath sounds clear to auscultation bilaterally and equal. No wheezes rales or rhonchi. HEART: Heart rate tachycardic, regular rhythm. No audible murmur ABDOMEN: Soft, right flank/CVA tenderness, and suprapubic tenderness with palpation, normoactive bowel sounds. No rebound, guarding, or rigidity. No masses appreciated. EXTREMITIES: Nontender, good range of motion, no pitting or edema. NEUROLOGICAL: No focal neurological deficits. Moves all extremities spontaneously Motor and sensory grossly intact on exam. PSYCH: Normal mood, normal affect. SKIN: Warm, Dry, normal turgor, no rashes or lesions noted on exposed skin TRAVEL OUTSIDE OF THE [place] IN LAST 30 DAYS: No - Related Data Allergies/Adverse Reactions: No Known Allergies Allergy (Verified 12/03/17 15:07) Past Medical History - Social History Smoking Status: Never Smoker Family History: Arthritis. denies: CAD, COPD, CVA, DM, Hyperlipidemia, Hypertension, Malignancy, Thyroid Disfunction Pulmonary Medical History: Reports: Hx Asthma Neurological Medical History: Reports: Hx Migraine Renal/ Medical History: Reports: Hx Kidney Stones - Medullary sponge kidney. Denies: Hx Peritoneal Dialysis Past Surgical History: Reports: Hx Appendectomy, Hx Inguinal Hernia - Immunizations Hx Diphtheria, Pertussis, Tetanus Vaccination: Yes Physical Exam - Vital signs Vitals: Temp Pulse Resp BP Pulse Ox 98.0 F 116 H 16 122/87 H 100 02/09/19 07:37 02/09/19 07:37 02/09/19 07:37 02/09/19 07:37 02/09/19 07:37 Course - Re-evaluation Re-evalutation: Patient seen and examined vital signs reviewed. Laboratory data and imaging were ordered as appropriate for the patient's presenting symptoms and complaint, with consideration of any critical or life threatening conditions that may be associated with their obtained history and exam as noted above. Patient was treated with IV fluids, Zofran and morphine Results were reviewed when available and demonstrated recently passed stone is currently in the urinary bladder, on CT imaging, UA was positive for blood, but not concerning for signs of infection, no leukocytosis, renal function normal, patient was given a dose of Toradol which did help with her pain The patient was re-evaluated and was stable, and improved, given a dose of Flomax in the ED. Evaluation was most consistent with ureteral stone recently passed, now the urinary bladder, discharged home with medication to take for pain if needed, Flomax, advised follow-up with urology. Results were discussed with the patient at this point, after careful consideration I feel that that patient can be discharged from the emergency department, the patient was educated treatments and reasons to return to the emergency department based on their presumed diagnosis as noted above, they were advised to followup with a primary care physician in 2-3 days. Patient was agreeable to plan of care. *Note is created using voice recognition software and may contain spelling, syntax or grammatical errors. Laboratory 02/09/19 02/09/19 02/09/19 08:25 08:25 08:25 WBC 7.2 RBC 4.49 Hgb 13.4 Hct 41.1 MCV 92 MCH 29.9 MCHC 32.7 RDW 13.4 Plt Count 351 Seg Neutrophils % 59.6 Lymphocytes % 31.4 Monocytes % 7.5 Eosinophils % 1.1 Basophils % 0.4 Absolute Neutrophils 4.3 Absolute Lymphocytes 2.3 Absolute Monocytes 0.5 Absolute Eosinophils 0.1 Absolute Basophils 0.0 Sodium 140.4 Potassium 4.3 Chloride 104 Carbon Dioxide 25 Anion Gap 11 BUN 13 Creatinine 0.65 Est GFR ( Amer) > 60 Est GFR (Non-Af Amer) > 60 Glucose 103 Calcium 10.0 Total Bilirubin 0.6 Direct Bilirubin 0.5 H Neonat Total Bilirubin Not Reportable Neonat Direct Bilirubin Not Reportable Neonat Indirect Bili Not Reportable AST 21 ALT 24 Alkaline Phosphatase 61 Total Protein 8.1 Albumin 4.8 Urine Color DARK YELLOW Urine Appearance CLOUDY Urine pH 5.0 Ur Specific [place] 1.023 Urine Protein 100 H Urine Glucose (UA) NEGATIVE Urine Ketones NEGATIVE Urine Blood LARGE H Urine Nitrite NEGATIVE Urine Bilirubin NEGATIVE Urine Urobilinogen NEGATIVE Ur Leukocyte Esterase TRACE H Urine WBC (Auto) 5 Urine RBC (Auto) >182 Urine Bacteria (Auto) 2+ Squamous Epi Cells Auto 23 Urine Mucus (Auto) MANY Urine Ascorbic Acid NEGATIVE Urine HCG, Qual NEGATIVE Abdomen/Pelvis CT 02/09/19 08:23 IMPRESSION: Recent migration of 2 mm stone into the urinary bladder. No hydronephrosis. - Vital Signs Vital signs: Temp Pulse Resp BP Pulse Ox 98.3 F 90 18 121/77 100 02/09/19 10:23 02/09/19 10:23 02/09/19 10:23 02/09/19 10:23 02/09/19 10:23 - Laboratory Result Diagrams: 02/09/19 08:25 02/09/19 08:25 Laboratory results interpreted by me: 02/09/19 02/09/19 08:25 08:25 Direct Bilirubin 0.5 H Urine Protein 100 H Urine Blood LARGE H Ur Leukocyte Esterase TRACE H Discharge - Discharge Clinical Impression: Bladder stone, Kidney stone Hematuria Qualifiers: Hematuria type: unspecified type Qualified Code(s): R31.9 - Hematuria, unspecified Condition: Stable Disposition: HOME, SELF-CARE Instructions: Kidney Stone ([facility]) Additional Instructions: Please take all medications as prescribed, complete the entire course of antibiotics, and please follow-up with urology, which has been listed below. [email or web address] [email or web address] [facility] Adalid Larsen [email or web address] Prescriptions: RX: Cephalexin Monohydrate [Keflex 500 mg Capsule] 500 mg PO BID 5 Days #10 capsule Hydrocodone/Acetaminophen [Alexander 5-325 Tablet] 1 each PO Q8H #10 tablet Naproxen [Naprosyn] 500 mg PO BID PRN #30 tablet PRN Reason: flank pain Tamsulosin HCl [Flomax 0.4 mg Cap.sr] 0.4 mg PO DAILY #7 cap.sr.24h Referrals: ELENA SERRA MD [COMMUNITY BASED STAFF] - Follow up in 3-5 days (or your primary care. )
[2019-02-09 08:59] LABS: ABSOLUTE EOSINOPHILS # (AUTO) 0.1 10^3/uL (0.0-0.6); ABSOLUTE LYMPHOCYTES (AUTO) 2.3 10^3/uL (0.5-4.7); ABSOLUTE MONOCYTES (AUTO) 0.5 10^3/uL (0.1-1.4); ABSOLUTE NEUT (AUTO) 4.3 10^3/uL (1.7-8.2); BASOPHILS % (AUTO) 0.4 % (0-2); EOSINOPHILS % (AUTO) 1.1 % (0-6); HEMATOCRIT 41.1 % (36.0-47.0); HEMOGLOBIN 13.4 g/dL (12.0-15.5); LYMPHOCYTES % (AUTO) 31.4 % (13-45); MEAN CORPUSCULAR HEMOGLOBIN 29.9 pg (27.0-33.4); MEAN CORPUSCULAR HGB CONC 32.7 g/dL (32.0-36.0); MEAN CORPUSCULAR VOLUME 92 fl (80-97); MONOCYTES % (AUTO) 7.5 % (3-13); PLATELET COUNT 351 10^3/uL (150-450); RED BLOOD COUNT 4.49 10^6/uL (3.72-5.28); RED CELL DISTRIBUTION WIDTH 13.4 % (11.5-14.0); SEGMENTED NEUTROPHILS % (AUTO) 59.6 % (42-78); TOTAL CELLS COUNTED % (AUTO) 100 %; WHITE BLOOD COUNT 7.2 10^3/uL (4.0-10.5)
[2019-02-09 09:05] LABS: APPEARANCE,URINE CLOUDY; BILIRUBIN,URINE NEGATIVE (NEGATIVE); GLUCOSE, URINE NEGATIVE (NEGATIVE); KETONES,URINE NEGATIVE (NEGATIVE); LEUKOCYTE ESTERASE,URINE TRACE (NEGATIVE); NITRITE,URINE NEGATIVE (NEGATIVE); PROTEIN,URINE 100 mg/dL (NEGATIVE); URINE SPECIFIC GRAVITY 1.023; UROBILINOGEN,URINE NEGATIVE mg/dL (<2.0)
[2019-02-09 09:06] LABS: COLOR,URINE DARK YELLOW
[2019-02-09] MEDS ORDERED: KETOROLAC TROMETHAMINE INJ/PF 30 MG/1 ML SDV IV ONE (09:09)
[2019-02-09 09:26] LABS: ALANINE AMINOTRANSFERASE 24 U/L (9-52); ALBUMIN 4.8 g/dL (3.5-5.0); ALKALINE PHOSPHATASE 61 U/L (38-126); ANION GAP 11 (5-19); ASPARTATE AMINO TRANSFERASE 21 U/L (14-36); BILIRUBIN,DIRECT 0.5 mg/dL (0.0-0.4); BILIRUBIN,TOTAL 0.6 mg/dL (0.2-1.3); BLOOD UREA NITROGEN 13 mg/dL (7-20); CARBON DIOXIDE 25 mmol/L (22-30); CHLORIDE 104 mmol/L (98-107); GLUCOSE 103 mg/dL (75-110); POTASSIUM 4.3 mmol/L (3.6-5.0); SODIUM 140.4 mmol/L (137-145); TOTAL PROTEIN 8.1 g/dL (6.3-8.2)
[2019-02-09] MEDS ORDERED: TAMSULOSIN HCL 0.4 MG CAP.SR.24H PO ONE (09:47)
--- NOTE | 2019-02-09 09:54 | RADIOLOGY REPORT (SQ) ---
EXAM DESCRIPTION: CT ABD/PELVIS NO ORAL OR IV COMPLETED DATE/TIME: 02/09/2019 9:35 am REASON FOR STUDY: right flank pain COMPARISON: None. TECHNIQUE: CT scan of the abdomen and pelvis performed without intravenous or oral contrast. Images reviewed with lung, soft tissue, and bone windows. Reconstructed coronal and sagittal MPR images revi ewed. All images stored on PACS. All CT scanners at this facility use dose modulation, iterative reconstruction, and/or weight based d osing when appropriate to reduce radiation dose to as low as reasonably achievable (ALARA). [facility]: Dose Right [facility]: CareDose [facility]: Dose Right [facility]: Teradose 4D [facility]: [employer] RADIATION DOSE: CT Rad equipment meets quality standard of care and radiation dose reduction techniq ues were employed. CTDIvol: 5.1 mGy. DLP: 274 mGy-cm.mGy. LIMITATIONS: None. FINDINGS: LOWER CHEST: No significant findings. No nodules or infiltrates. NON-CONTRASTED LIVER, SPLEEN, ADRENALS: Evaluation limited by lack of IV contrast. No identified sign ificant masses. PANCREAS: No masses. No peripancreatic inflammatory changes. GALLBLADDER: No identified stones by CT criteria. No inflammatory changes to suggest cholecystitis. RIGHT KIDNEY AND URETER: No suspicious masses. Assessment limited by lack of IV contrast. Medullary nephrocalcinosis. 2 mm formed renal calculus. No hydronephrosis or hydroureter. LEFT KIDNEY AND URETER: No suspicious masses. Assessment limited by lack of IV contrast. Medullary nephrocalcinosis. 2 mm formed renal calculus. No hydronephrosis or hydroureter. AORTA AND RETROPERITONEUM: No aneurysm. No retroperitoneal masses or adenopathy. BOWEL AND PERITONEAL CAVITY: No obvious masses or inflammatory changes. No free fluid. APPENDIX: Surgically absent. PELVIS, BLADDER, AND ABDOMINAL WALL:2 mm dependent stone in the urinary bladder. BONES: No significant findings. OTHER: No other significant finding. IMPRESSION: Recent migration of 2 mm stone into the urinary bladder. No hydronephrosis. COMMENT: Quality ID # [id number]: Final reports with documentation of one or more dose reduction techniques (e.g., Automated exposure control, adjustment of the mA and/or kV according to patient size, use of iterative reconstruction technique) TECHNICAL DOCUMENTATION: JOB ID: [id number]- All Rights Reserved Reading location - IP/workstation name: [email or web address]
[2019-02-09 10:35] VITALS: BP 121/77
== END 2019-02-09 10:23 | disposition home or self-care (01) ==
LOC: ER 07:32
DX: N21.0 Calculus in bladder (principal); N20.0 Calculus of kidney; R31.9 Hematuria, unspecified; R10.9 Unspecified abdominal pain; R11.0 Nausea; F17.210 Nicotine dependence, cigarettes, uncomplicated; J45.909 Unspecified asthma, uncomplicated
CPT/HCPCS: 99284; 96361; 96374; 96375; 36415; 85025; 81025; 80053; 81001; 74176; J1885; J2270; J2405; J7030